=== PATIENT | female | born 1995 ===

== ENCOUNTER 2024-09-22 08:12 | Emergency (ER) | payer SELFPAY ==
[2024-09-22 08:42] LABS: BASOPHILS ABSOLUTE AUTO 0.03 K/uL (0.00-0.20); BASOPHILS PERCENT AUTO 0.4 % (0.0-2.0); EOSINOPHILS ABSOLUTE AUTO 0.06 K/uL (0.00-0.50); EOSINOPHILS PERCENT AUTO 0.8 % (0.0-5.0); HEMATOCRIT 40.6 % (34.0-46.0); HEMOGLOBIN 13.6 g/dL (11.7-15.5); LYMPHOCYTES ABSOLUTE AUTO 2.06 K/uL (0.50-3.50); LYMPHOCYTES PERCENT AUTO 28.9 % (10.0-50.0); MEAN CORPUSCULAR HEMOGLOBIN 28.4 pg (28.2-33.3); MEAN CORPUSCULAR HGB CONC 33.5 g/dL (31.7-36.0); MEAN CORPUSCULAR VOLUME 84.8 fL (84.0-98.0); MONOCYTES ABSOLUTE AUTO 0.65 K/uL (0.00-1.00); MONOCYTES PERCENT AUTO 9.1 % (2.0-14.0); NEUTROPHILS ABSOLUTE AUTO 4.33 K/uL (1.40-7.00); NEUTROPHILS PERCENT AUTO 60.8 % (45.0-80.0); PLATELET COUNT,PLT 324 K/uL (150-350); RED BLOOD CELL COUNT 4.79 M/uL (3.77-5.09); RED CELL DISTRIBUTION WIDTH 13.6 % (11.2-14.1); WHITE BLOOD CELL COUNT,WBC 7.1 K/uL (4.0-10.2)
[2024-09-22] MEDS: Ketorolac 15 MG/ML SDV IVPUSH ONE (08:44)
[2024-09-22] MEDS: Sodium Chloride 0.9% 10 ML Syringe FLUSH PRN (08:48)
[2024-09-22 09:03] LABS: ALANINE AMINOTRANSFERASE,ALT 34 U/L (12-78); ALKALINE PHOSPHATASE 120 IU/L (46-116); ANION GAP 9.7 meq/L (7-15); ASPARTATE AMNIOTRANSFERASE,AST 26 U/L (15-37); BILIRUBIN TOTAL 0.5 mg/dL (0.2-1.0); BLOOD UREA NITROGEN,BUN 13 mg/dL (7-18); CARBON DIOXIDE,CO2 25.3 mmol/L (21.0-32.0); CHLORIDE,CL 102 mmol/L (98-107); CREATININE 0.62 mg/dL (0.51-1.17); GLUCOSE RANDOM 91 mg/dL (70-99); MAGNESIUM 2.2 mg/dL (1.8-2.4); POTASSIUM,K 3.9 mmol/L (3.5-5.1); PROTEIN TOTAL,TP 8.5 g/dL (6.4-8.2); SODIUM,NA 137 mmol/L (136-145)
[2024-09-22 09:08] LABS: ESTIMATED GFR 125 mL/min (>=60); LACTIC ACID 0.9 mmol/L (0.4-2.0)
[2024-09-22 10:05] LABS: APPEARANCE,URINE CLEAR; BILIRUBIN,URINE NEGATIVE (NEGATIVE); COLOR,URINE YELLOW; GLUCOSE,URINE NEGATIVE (NEGATIVE); KETONES,URINE NEGATIVE (NEGATIVE); LEUKOCYTE ESTERASE,URINE NEGATIVE (NEGATIVE); NITRITE,URINE NEGATIVE (NEGATIVE); OCCULT BLOOD,URINE SMALL (NEGATIVE); PROTEIN,URINE NEGATIVE (NEGATIVE); UROBILINOGEN,URINE 0.2 E.U./dL (0.2-1.0)
[2024-09-22 10:36] LABS: BACTERIA,URINE NOT SEEN /HPF (NONE TO FEW); EPITHELIAL CELLS,URINE OCCASIONAL /LPF; MUCUS,URINE NOT SEEN /LPF (NEGATIVE); RBC,URINE 0-5 /HPF; WBC,URINE 0-5 /HPF
[2024-09-22] MEDS: traMADol 50 MG Tab PO ONE (11:21)
[2024-09-22] MEDS: predniSONE 20 MG Tab PO ONE (11:21)
== END 2024-09-22 11:25 | disposition home or self-care (01) ==
LOC: LL.ED 08:12
DX: R10.31 Right lower quadrant pain (principal); Z79.899 Other long term (current) drug therapy
CPT/HCPCS: 36415; 74176; 80053; 81001; 81025; 83605; 83735; 85025; 96374; 99284-25; A9270-GY; J1885; J7512